=== PATIENT | female | born 2000 | race Caucasian/White ===

== ENCOUNTER → 2020-03-30 | Outpatient (CLI) | payer BC | LOC: COL.RAD 11:03 | DX: M25.572 Pain in left ankle and joints of left foot (principal); Z96.7 Presence of other bone and tendon implants ==

== ENCOUNTER 2020-12-20 16:20 | Emergency (ER) | payer BC ==
[~2020-12-20] VITALS: Ht 160 cm; Wt 54.5 kg
[2020-12-20 16:40] VITALS: TEMP 98.6
[2020-12-20] MEDS ORDERED: ESTARYLLA 35 MC1 TAB PO (16:44)
[2020-12-20] MEDS ORDERED: CORTEF5 MG PO ×2 (16:45)
[2020-12-20] MEDS ORDERED: CORTEF 10MG TAB10 MG PO (16:45)
[2020-12-20] MEDS ORDERED: TROKEND50 (16:46)
[2020-12-20] MEDS ORDERED: FLORINEF ACETA0.1 MG PO (16:46)
[2020-12-20] MEDS ORDERED: SYNTHROID 0.0.025 MG PO (16:46)
[2020-12-20 18:59] VITALS: PULSE 81
== END 2020-12-20 17:35 | disposition home or self-care (01) ==
LOC: COL.ER 16:20
DX: S06.0X0A Concussion without loss of consciousness, initial encounter (principal); W22.03XA Walked into furniture, initial encounter